=== PATIENT | female | born 1965 | race Caucasian/White ===

== ENCOUNTER 2020-11-29 07:02 | Day surgery (SDC) | payer OTHER ==
--- NOTE | 2020-11-28 11:52 | RAD REPORT ---
EXAM DESCRIPTION: RAD - Chest Pa And Lat (2 Views) - 11/28/2020 11:43 am CLINICAL HISTORY: preop COMPARISON: Chest Pa And Lat (2 Views) dated 03/21/2016 FINDINGS: Lines: None. Lungs: No evidence of edema or pneumonia. Pleural: No significant pleural effusions or pneumothorax. Cardiac: The heart size is within normal limits. Bones: No acute fractures. Other: IMPRESSION: No acute cardiopulmonary disease.
[2020-11-28 11:57] LABS: Absolute Lymphocytes (CBC) 1.8 K/uL (0.7-4.9); Basophils % 0.7 % (0-1.3); Hematocrit 39.1 % (36.0-45.0); Lymphocytes % 22.1 % (15.3-44.8); MPV 7.8 fL (7.6-11.3); RBC Red Blood Cell Count 4.46 M/uL (3.86-4.86)
[2020-11-28 12:08] LABS: BUN Blood Urea Nitrogen 12 mg/dL (7-18); Bicarbonate 31 mmol/L (21-32); Glucose Level 103 mg/dL (74-106); Potassium 3.9 mmol/L (3.5-5.1); Sodium Level 141 mmol/L (136-145)
--- NOTE | 2020-11-28 18:30 | EKG ---
Test Date: 2020-11-28 Test Time: 10:26:35 Undergraduate Internship: EREN MEASUREMENT RESULTS: Intervals: Rate: 79 MD: 138 QRSD: 74 QT: 360 QTc: 412 Duncan: P: 36 MD: 138 QRS: 18 T: 24 INTERPRETIVE STATEMENTS: Normal sinus rhythm Cannot rule out Anterior infarct, age undetermined Abnormal ECG No previous ECG available for comparison Electronically Signed On 11-28-20 18:29:36 CDT by Jaskaran Samuels
[2020-11-29] MEDS ORDERED: CEFAZOLIN/SWI 1gm 1 GM/10 ML SYR ONE (07:43)
[2020-11-29] MEDS ORDERED: NA CHLORIDE 0.9% 0 ML ONE (07:43)
[2020-11-29] MEDS ORDERED: Ringers Lactate 1,000 ML IV ONE (07:57)
[2020-11-29] MEDS ORDERED: ACETAMINOPHEN 500 MG TAB PO ONE (07:59)
[2020-11-29] MEDS ORDERED: CELECOXIB 100 MG CAPSULE PO ONE (07:59)
[2020-11-29] MEDS ORDERED: CELECOXIB 100 MG CAPSULE ONE (08:21)
[2020-11-29] MEDS ORDERED: ACETAMINOPHEN 500 MG TAB ONE (08:21)
[2020-11-29] MEDS: Ringers Lactate 1,000 ML IV ONE ×2 (09:42→09:52)
--- NOTE | 2020-11-29 09:51 | P.BOP ---
Preoperative diagnosis: ventral hernia, hx of abdominoplasty Postoperative diagnosis: ventral and umbilical hernia, intrabdominal adhesions Primary procedure: laparoscopic repair of ventral and umbilical hernia Estimated blood loss: <10cc Specimen: hernia sac with suture granulama Findings: umbilical and ventral supraumbilical hernia Anesthesia: General Complications: None Transferred to: Recovery Room Condition: Good
[2020-11-29] MEDS ORDERED: MIDAZOLAM HCL 2 MG/2 ML INJ ONE ×2 (10:29)
[2020-11-29] MEDS ORDERED: MEPERIDINE HCL 25 MG/ML SYR ONE (10:29)
[2020-11-29] MEDS ORDERED: LIDOCAINE 1% MPF 5 ML VIAL ONE (10:29)
[2020-11-29] MEDS ORDERED: GLYCOPYRROLATE 0.2 MG/ML SYR ONE ×2 (10:29)
[2020-11-29] MEDS ORDERED: propofoL 200 MG/20 ML VIAL IV ONE (10:29)
[2020-11-29] MEDS ORDERED: NEOSTIGMINE 1 MG/ML -5 ML ONE (10:29)
[2020-11-29] MEDS ORDERED: ONDANSETRON 4 MG/2 ML VIAL ONE (10:29)
[2020-11-29] MEDS ORDERED: dexAMETHasone 10 MG/ML VIAL ONE (10:29)
[2020-11-29] MEDS ORDERED: EPHEDRINE SULF 50 MG/ML VIAL ONE (10:29)
[2020-11-29] MEDS ORDERED: ROCURONIUM 50 MG/5 ML VIAL IV ONE (10:29)
[2020-11-29] MEDS ORDERED: FENTANYL CITR 100 MCG/2 ML ONE (10:29)
[2020-11-29 10:50] VITALS: TEMP 97.1; O2SAT 99
--- NOTE | 2020-11-29 12:02 | OP ---
Date of Procedure: 11/29/2020 Surgeon: Curtis Lance MD Preoperative Diagnoses: Abdominal pain, multiple ventral and umbilical hernias, history of abdominop lasty. Postoperatve Diagnoses: Abdominal pain, ventral and umbilical hernias, history of abdominoplasty and intraabdominal adhesions. Procedure Performed: Laparoscopic repair of ventral and umbilical hernia. Estimated Blood Loss: Less than 10 cc. Specimen: Hernia sac with suture granuloma. Findings: Umbilical and ventral supraumbilical hernia. Anesthesia: General plus local. Indications: This is the case of a 55-year-old patient comes to us with several problems. She has t wo bumps, belly button and just above and the ventral region. The patient has chronic pain in that r egion, feels some twitching, feels a lump and she wants the hernia to be repaired. The benefits, alt ernatives, and risks of repair of a ventral hernia were fully explained to the patient which include, but not limited to infection, bleeding, damage to adjacent structures, anesthesia complication, recu rrence, DE, and even . She also understands this may not relieve any symptoms. She might need more than one surgical intervention. She also understands the importance of no heavy lifting and als o the importance of losing some weight. She signed a consent. The patient was explained the pros and cons of mesh placement in case we have to use it. She did consent for mesh placement if needed. Description Of Procedure: The patient was brought to the operating room, placed in supine position. Anesthesia was done without complication. Abdominal area was prepped and draped in a sterile fashio n. Local anesthetic was applied. The patient has an incision over the periumbilical area from previ ous abdominoplasty. The ventral bump that we fill is just supraumbilical, so we were trying to see i t in order to minimize scars. We can combine this laparoscopic and open to avoid any other openings on the abdomen. So, when we opened the umbilical incision, Incision was carried down. We noticed th e umbilical hernia. We used that access to be able to put a camera inside. Umbilical fascia was subhash aned and Vicryl #1 was placed inside the fascia. Lilian trocar was carefully introduced. Pneumoperi toneum was obtained. We noticed as she described just above the supraumbilical region, the patient h as a ventral region. That is the bump that she feels. On that hernia itself, the patient has a sutu re from the previous abdominoplasty and looked like she also has a suture granuloma on the hernia. S o, we removed this stitch and we identified the hernia defect creating a flap in the supraumbilical r egion, so we can just go through without having to make another incision and put Vicryl #1 after the fascia edges were delineated and the hernia edges were delineated. We proceeded to close the defects with a cjknqb-cw-jjzkb fashion #1 Vicryl. The area was irrigated. At that moment, I proceeded then to inspect the area once again laparoscopically. This was done with laparoscopic assist to avoid an y injury to the underlying bowel. The patient also on encounter we noted some adhesions in the abdom en that were carefully removed with Leckrone scissors. When we laparoscoped, we make sure that those adh esions shows no enterotomies and there was no bleeding. At that moment, I proceeded then to carefull y inspect the area. I have to mention that I put a 5 mm trocar on the right lower side to assist wit h the laparoscopic procedure. That trocar was removed under direct visualization. No bleeding and t he Lilian trocar was removed and then we proceeded to close the umbilical hernia with a lfjquf-dz-qpk ht fashion #1 Vicryl. The patient tolerated the procedure well. Subcutaneous tissue was closed with 3-0 chromic and the skin in a subcuticular fashion with 3-0 chromic. The patient tolerated the proc edure well. The patient was sent to recovery in stable condition. YESSY/SAMEERA Voice ID: [id number] Report ID: [id number]
--- NOTE | 2020-11-29 12:09 | DS ---
Diagnoses: Ventral hernia, history abdominoplasty, umbilical hernia. Procedure: Laparoscopic repair of ventral and umbilical hernia. Disposition: Home. Activity: As tolerated. No heavy lifting. Plan: Follow up in my office in 1 week. Call for appointment at [phone]. Keep dressings intact un til next visit. Medications: See orders. YESSY/SAMEERA Voice ID: [id number] Report ID: [id number]
[2020-11-29 12:27] VITALS: BP 100/59
[2020-11-29] MEDS ORDERED: BUPIVACAINE 0.5% PF 10 ML VIAL ONE (12:33)
== END 2020-11-29 11:49 | disposition home or self-care (01) ==
LOC: OR 07:02
PROVIDERS: ATTEND Surgery
PROC: 0WQF4ZZ Repair Abdominal Wall, Percutaneous Endoscopic Approach (ICD-10-PCS; principal; 2020-11-29 08:00)
DX: K43.9 Ventral hernia without obstruction or gangrene (principal); Z20.822 Contact with and (suspected) exposure to COVID-19
CPT/HCPCS: 93005; 85025; 80048; 36415; 88302; 71046; 49652; U0003; J2704; J2250 ×2; J3010; J1100; J2175; J2710; J0690; J7120 ×2; J2405; J7030

== ENCOUNTER 2021-01-01 12:04 | Day surgery (SDC) | payer OTHER ==
[2020-12-28 11:21] LABS: Absolute Lymphocytes (CBC) 1.5 K/uL (0.7-4.9); Basophils % 0.5 % (0-1.3); Hematocrit 39.8 % (36.0-45.0); Lymphocytes % 20.8 % (15.3-44.8); MPV 8.2 fL (7.6-11.3); RBC Red Blood Cell Count 4.56 M/uL (3.86-4.86)
[2020-12-28 11:24] LABS: Protime INR 1.02
[2020-12-28 11:27] LABS: Potassium 4.3 mmol/L (3.5-5.1)
[~2021-01-01 12:04] MED LIST: HEPA 1000U/500MLS 2,000 UNIT/1,000 ML BAG IV ONE; LIDOCAINE 1% 20 ML MDV ONE
[2021-01-01] MEDS ORDERED: NA CHLORIDE 0.9% 500 ML ONE (13:07)
[2021-01-01 15:37] VITALS: TEMP 99.5
[2021-01-01] MEDS ORDERED: FENTANYL CITR 100 MCG/2 ML ONE (16:38)
[2021-01-01] MEDS ORDERED: MIDAZOLAM HCL 2 MG/2 ML INJ ONE (16:38)
[2021-01-01] MEDS ORDERED: VERAPAMIL HCL 10 MG/4 ML VIAL IV ONE (16:38)
[2021-01-01] MEDS ORDERED: HEPARIN 5000 UNIT/ML 1 ML VIAL ONE (16:39)
[2021-01-01] MEDS ORDERED: ATROPINE SULF 1 MG/10 ML SYR IV ONE (16:39)
[2021-01-01 17:37] VITALS: O2SAT 99
[2021-01-01 19:16] VITALS: BP 131/72
--- NOTE | 2021-01-01 20:15 | OP ---
Date of Procedure: 01/01/2021 Surgeon: DARCI PAGE Procedures Performed: 1.Selective coronary angiogram. 2.Right heart catheterization. 3.Left heart catheterization. Indication: Unexplained severe shortness of breath with exertion. Access: 1.Right radial artery 6-Malawian closed with TR band. 2.Right IJ 7-Malawian closed with manual pressure. Complications: None. Anesthesia: Total sedation time was 15 minutes. Description Of Procedure: After risks, benefits, and alternatives were explained, the patient agreed to proceed and signed the informed consent. The patient was brought into the cardiac catheterizatio n laboratory, prepped and draped in sterile fashion. Access to right radial artery using pediatric m icropuncture kit, placed a 6-Malawian Slender sheath and access side IJ using a micropuncture kit and u ltrasound guidance and placed a 7-Malawian pinnacle sheath. I took a balloon tip 7-Malawian swan cathete r through the right IJ into the right atrium recorded waveform pressure, then took RV recorded wavefo rm pressure, and then took the PA recorded waveform pressure and thermodilution cardiac output was ob tained and then to the wedge recorded waveform pressure. Then removed the swan. Subsequently, we to ok a 5-Malawian [place] 4.0 catheter into the aortic root over a J-wire through the right radial access a nd engaged left main, right coronary artery, and then the catheter was advanced over the wire into th e LV recorded LVEDP. Upon pullback, there was no gradient and then removed the catheter and sheath, placed TR band with good hemostasis. Findings: 1.Left main; large, normal. 2.LAD; normal. Diagonal branch is larger than the LAD itself, but it is normal as well. 3.Left circumflex is normal nondominant. 4.RCA; large dominant and normal. 5.LVEDP of 15 to 16 mmHg. 6.The right heart catheterization numbers RA pressure was 4. RV pressure was 21/8, mean of 9. PA p ressure is 29/3, mean of 17, pulmonary wedge pressure was 11, and cardiac output was 4.9 L/minute. Conclusions: 1.Normal coronary arteries. 2.Normal filling pressures. SR/MODL Voice ID: [id number] Report ID: [id number]
== END 2021-01-01 19:00 | disposition home or self-care (01) ==
LOC: CCL 12:04
PROVIDERS: ATTEND Internal Medicine
DX: R07.9 Chest pain, unspecified (principal); R06.02 Shortness of breath; I10 Essential (primary) hypertension; Z79.82 Long term (current) use of aspirin; Z20.822 Contact with and (suspected) exposure to COVID-19
CPT/HCPCS: 85025; 80048; 36415; 85610; 85730; 93460; U0003; C1893; J1644 ×2; J2250; J3010; J7040

== ENCOUNTER 2021-03-14 23:14 | Emergency (ER) | payer OTHER ==
--- OUTSIDE RECORDS SUMMARY | 2021-03-14 23:19 | XMS REPORT | Continuity of Care Document ---
:1965 Author Organization [facility] t Address [address] [place] [address] Care Team Providers Name Role Phone Freddie COTTO Primary Care Physician Unavailable Freddie Ortega Attending Clinician Freddie COTTO Attending Clinician Unavailable Syd Yip APN Attending Clinician Syd YIP Attending Clinician Unavailable Mami JONES Attending Clinician Payers Payer Name Policy Type Policy Number Effective Date Expiration Date Lili morocho AETNA MANAGED [id number] 2010 MD Rabago CAREAETNA 00:00:00 [id number] 13/2010-[address] [address]TD Problems Condition Condition Condition Status Onset Resolution Last Treating Co mments Source Name Details Category Date Date Treatment Clinician Date Hip pain Hip pain Disease Active Overview: MD Soraida pierre of this n note might be different from the original. chronic Hypothyroi Hypothyroi Disease Active [place] guardado Major Major Disease Active depressive depressive An derso disorder disorder n Allergies, Adverse Reactions, Alerts Allergy Allergy Status Severity Reaction(s) Onset Inactive Treating Comm ents Source Name Type Date Date Clinician No Known DA Active U 2017-03 [facility] [place] Family History Family Member Diagnosis Comments Start Date Stop Date Source Paternal grandmother Liver cancer MD Rabago Maternal cousin Liver cancer MD Sharan haile Maternal uncle -Brain cancer MD Sharan haile Maternal uncle -Unknown cancer MD Janice keys Natural mother -Breast cancer And chandrakant Social History Social Habit Start Date Stop Date Quantity Comments Source History [facility] MD Rabago Alcohol Frequency History [facility] MD Rabago Alcohol Std Drinks History [facility] MD Rabago Alcohol Binge Alcohol intake 2020-08-31 2020-08-31 Current drinker of MD Rabago 00:00:00 00:00:00 alcohol (finding) Tobacco use and 2016-03-14 2016-03-14 Smokeless tobacco MD Rabago exposure 00:00:00 00:00:00 non-user History [facility] 2016-03-14 2016-03-14 socially MD Rabago Alcohol Comment 00:00:00 00:00:00 Sex [birth year] At [birth year] F MD Sanchez on 00:00:00 00:00:00 Smoking Status Start Date Stop Date Source Never smoked tobacco MD Rabago Medications Ordered Filled Start Stop Current Ordering Indication Dosage Frequency Signature Comments Components Source Medication Medication Date Date Medication? Clinician (SIG) Name Name famotidine Yes 20mg Take 20 mg M D (PEPCID) 20 6-10 by mouth Sharan rso mg tablet 09:09: daily as n 17 needed. gabapentin Yes 300mg Take 300 MD (NEURONTIN) 6-10 mg by Anderso 300 mg 09:09: mouth n capsule 17 twice daily. traZODone Yes 100mg Take 100 MD (DESYREL) 6-10 mg by Anderso 100 mg 09:09: mouth at n tablet 17 bedtime. buPROPion Yes 300mg Take 300 MD (WELLBUTRIN 6-10 mg by Anderso XL) 300 mg 09:09: mouth n 24 hr 17 daily. tablet thyroid Yes 120mg Take 120 MD (ARMOUR 6-10 mg by Anderso THYROID) 09:09: mouth n 120 mg tab 17 daily. tablet metoprolol Yes 50mg Take 50 mg M D succinate 6-10 by mouth Daniel o (TOPROL XL) 09:09: daily. n 50 mg 24 hr 17 tablet lisdexamfet Yes 60mg Take 60 mg MD amine 6-10 by mouth Anderso (VYVANSE) 09:09: every n 60 mg 17 morning. capsule UNABLE TO Yes Med Name: MD FIND 6-10 hormone Anderso 08:54: pellets n 57 every three months due for replacemen t today losartan Yes 25mg Take 25 mg MD (COZAAR) 25 6-10 by mouth Sharan rso mg tablet 08:54: daily. n 57 traMADol Yes 50mg Take 50 mg MD (ULTRAM) 50 6-10 by mouth Sharan rso mg tablet 08:54: every 8 n 57 (eight) hours as needed. ibuprofen Yes 800mg Take 800 MD (ADVIL,MOTR 6-10 mg by Anderso IN) 800 mg 08:54: mouth n tablet 57 every 8 (eight) hours as needed. thyroid Yes 130mg Take 130 MD (NATURE-THR 1-08 mg by Anderso OID) 130 mg 09:27: mouth n tab tablet 24 daily. DULoxetine 2017-03 Yes TAKE 1 MD (CYMBALTA) 0-01 CAPSULE Daniel o 60 mg 00:00: BY MOUTH n capsule 00 DAILY. progesteron Yes TAKE 1 MD e 8-15 CAPSULE BY Anderso (PROMETRIUM 00:00: MOUTH AT n ) 200 MG 00 BEDTIME capsule Vital Signs Vital Name Observation Time Observation Value Comments Source Systolic blood pressure 2020-08-31 14:03:00 126 mm[Hg] MD Rabago Diastolic blood pressure 2020-08-31 14:03:00 69 mm[Hg] MD Rabago Heart rate 2020-08-31 14:03:00 74 /min MD [facility] Respiratory rate 2020-08-31 14:03:00 15 /min MD Dain wilde Body height 2020-08-31 14:03:00 156 cm MD [facility] Body weight 2020-08-31 14:03:00 79.8 kg MD [facility] BMI 2020-08-31 14:03:00 32.79 kg/m2 MD Wall son Procedures Procedure Date / Time Performed Performing Clinician [facility] e MAMMO DIGITAL SCREENING 2020-08-31 13:42:06 Noemy Yip MD nderson BILATERAL W OUMAR Plan of Care Planned Activity Planned Date Details Comments Source Future Scheduled Test 1971-11-05 00:00:00 COVID-19 Vaccination MD Rabago (1) [code = COVID-19 Vaccination (1)] Encounters Start End Encounter Admission Attending Care Care Encounter Source Date/Time Date/Time Type Type Clinicians Facility Department ID 2020-08-31 2020-08-31 Outpatient ANALI YADIEL [facility] MDA [id number] 08:50:24 08:50:24 KATE guardado 2020-08-31 2020-08-31 Outpatient ANALI YIP [facility] BURRIS [id number] 08:11:45 08:11:45 NOEMY guardado Results Test Description Test Time Test Comments Results Result [facility] e Comments UTERUS,OTHER THAN 2018-04-14 PROLAPSE/JANET 07:43:00 --------RUN DATE: 04/14/18 [facility] PAGE 1 RUN TIME: 909 Specimen Inquiry RUN USER: INTERFACE --------PATIENT: AMRITA WALKER LOC: [facility] U #: [id number] AGE/SX: 52/F ROOM: [facility] RE04/10/18REG DR: Marcin Lord MD : 67 BED: A DIS: 04/11/18 STATUS: DIS Cheryl TLOC: -------- SPEC #: [id number] RECD: 04/10/18 STATUS: SOUT REQ #: [id number] CRISTIAN: 04/10/18- SUBM DR: Marcin Lord MD ENTERED: 04/10/18 SP TYPE: UTERUSOTH OTHR DR: ORDERED: LEVEL V SURGICA CODES: E05221 - UTERUS, NOS PROCEDURES: LEVEL V SURGICA (Incomplete) TISSUES: UTERUS, NOS - UTERUS, CERVIX, BILATERAL FALLOPIAN TUBES AND OVARIES CLINICAL HISTORY 52 year old, dysfunctional uterine bleeding (kr) FINAL DIAGNOSIS Uterus, hysterectomy, cervix - Nabothian cysts endometrium - proliferative pattern myometrium - extensive adenomyosis - multiple leiomyomas with degenerative change serosa - no pathologic diagnosis Ovary and fallopian tube, right, resection - cortical fibrous nodule - status post tubal ligation Ovary and fallopian tube, left, resection - status post tubal ligation - benign paratubal cyst Tissue code 1 CPT code(s): 68216 cds/kr dt: 04/14/18 GROSS DESCRIPTION ANATOMIC SOURCE OF TISSUE (per Requisition): Uterus, cervix, bilateral fallopian tubes and ovaries The specimen is received in formalin, labeled with the patient's name and designated "uterus, cervix, bilateral tubes and ovaries". It consists of a 9 x 7 x 6 cm hysterectomy specimen with bilateral adnexa attached. The uterus weighs 145 gm. The serosa is domingo, smooth, and glistening and contains subserosal firm nodules measuring up to 3.4 cm. The cervical external os measures 0.6 cm. The portio vaginalis measures 3.0 cm. [employer]st sections are submitted labeled A. CONTINUED ON NEXT PAGE --------RUN DATE: 04/14/18 [facility] PAGE 2 RUN TIME: 909 Specimen Inquiry RUN USER: INTERFACE --------SPEC #: [id number] PATIENT: AMRITA WALKER #[id number] (Continued) GROSS DESCRIPTION (Continued) The endometrium measures 0.1 cm and contains ill-defined, submucosal firm lesions measuring up to 0.9 cm. The myometrium measures up to 2.8 cm thick and contains multiple additional domingo-white, firm nodules measuring up to 1.8 cm. No degenerative change is noted in the leiomyomas. Acquisitions Analyst sections are submitted labeled B and C. The right adnexa consists of a 2.2 x 1.5 x 0.9 cm ovary with an attached 5 x 0.5 x 0.5 cm segment of previously ligated fallopian tube with fimbria. The surface of the ovary contains pedunculated 0.2 cm off-white, firm nodule. The entire fimbria and one cross-section of tube and ovary with the firm nodule are submitted labeled D. The left adnexa consists of a 2.2 x 1.0 x 0.9 cm ovary with an attached 2 x 0.4 x 0.5 cm segment of previously ligated fallopian tube with fimbria and several semi-translucent paratubal cysts measuring up to 0.2 cm. The entire fimbria and one cross-section of tube with the cyst and one section of ovary are submitted and labeled E. seng/jerome 04/10/18 @ 1150 MICROSCOPIC DESCRIPTION There is no evidence of atypia or malignancy. billy/jerome dt: 04/14/18 Signed Juan Jose Villa 04/14/18 0743 -------- END OF REPORT HGB HCT 2018-04-11 04:14:00 Test Item Value Reference Range Interpretation Comme nts HEMOGLOBIN (test code = HGB) 11.8 g/dL 10.7-13.9 N HEMATOCRIT (test code = HCT) 35.9 % 32.1-42.1 N UR HCG [id number] 06:48:00 Test Item Value Reference Range Interpretation Comments UR HCG QUAL (test NEGATIVE 1. Very di lute urine code = HCGQLU) specimens, as indicated by a lowspecific g ravity, may not contain rep resentative levels ofhCG. 2 . False negative result s may occur when the levels of hCGare below the sensi tivity level of the test. If is still suspec francois, a first morningurine sp ecimen should be colle cted 48 hours later and tested.
--- OUTSIDE RECORDS SUMMARY | 2021-03-14 23:19 | XMS REPORT | Clinical Summary ---
:1965 Author Organization [facility] MD [facility] Address [address] [place] [address] Care Team Providers Name Role Phone Vandana Sharp MD Primary Care Provider Unavailable Juliette Braxton MD Unavailable Tiffanie Jackson NP Unavailable Freddie Willis Primary Care Provider Allergies No known active allergies Medications Medication Sig Dispensed Refills Start Date End Date Status thyroid (NATURE-THROID) Take 130 mg by 0 Active 130 mg tab tablet mouth daily. UNABLE TO FIND Med Name: hormone 0 Active pellets every three months due for replacement today DULoxetine (CYMBALTA) TAKE 1 CAPSULE 2 12/22/2017 Active 60 mg capsule BY MOUTH DAILY. progesterone TAKE 1 CAPSULE BY 2 11/05/2017 Active (PROMETRIUM) 200 MG MOUTH AT BEDTIME capsule losartan (COZAAR) 25 mg Take 25 mg by 0 Active tablet mouth daily. traMADol (ULTRAM) 50 mg Take 50 mg by 0 Active tablet mouth every 8 (eight) hours as needed. ibuprofen Take 800 mg by 0 Activ e (ADVIL,MOTRIN) 800 mg mouth every 8 tablet (eight) hours as needed. famotidine (PEPCID) 20 Take 20 mg by 0 Active mg tablet mouth daily as needed. gabapentin (NEURONTIN) Take 300 mg by 0 Active 300 mg capsule mouth twice daily. traZODone (DESYREL) 100 Take 100 mg by 0 Active mg tablet mouth at bedtime. buPROPion (WELLBUTRIN Take 300 mg by 0 Active XL) 300 mg 24 hr tablet mouth daily. thyroid (ARMOUR Take 120 mg by 0 Active THYROID) 120 mg tab mouth daily. tablet metoprolol succinate Take 50 mg by 0 Active (TOPROL XL) 50 mg 24 hr mouth daily. tablet lisdexamfetamine Take 60 mg by 0 Active (VYVANSE) 60 mg capsule mouth every morning. 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 08/31/2020 Travel 07/02/2020 Orders Only Infectious Diseases Mami SARS-CoV -2 MD Bing vaccination after 03/14/2020 Surgical History Surgery Date Site/Laterality Comments GASTRIC BYPASS 03/24/2010 - 03/23/2011 loss of 60 lbs CHOLECYSTECTOMY 02/21/2011 - 03/23/2011 APPENDECTOMY 03/24/2005 - 03/23/2006 BLADDER SUSPENSION 03/24/2001 - 03/23/2002 COLONOSCOPY 03/24/1999 - 03/23/2000 TUBAL LIGATION 03/24/1993 - 03/23/1994 Bilateral HEMORRHOID SURGERY 03/24/1991 - 03/23/1992 EYE SURGERY 03/24/1971 - 03/23/1972 Right following trauma BLADDER SUSPENSION 09/22/2015 - 10/22/2015 with rec snow ring ABDOMINOPLASTY 10/23/2015 - 11/22/2015 bilateral t high lift, bilateral arm li ft, hernia repair x 2 LIPOSUCTION 03/24/2016 - 04/23/2016 SHOULDER SURGERY Right rotator cuff re pair HYSTERECTOMY 04/13/2018 Total hysterecto my in 03/2018 due to fibroids and heavy bleeding. Medical History Medical History Date Comments Major depressive disorder Hypothyroidism Hip pain chronic Family History Medical History Relation Name Comments Liver cancer Maternal Cousin -Brain cancer Maternal Uncle 1 -Unknown cancer Maternal Uncle 2 -Breast cancer Mother Liver cancer Paternal Grandmother Relation Name Status Comments Maternal Cousin Maternal Uncle 1 Maternal Uncle 2 Mother Alive Paternal Grandmother Social History Tobacco Use Types Packs/Day Years Used Date Never Smoker Smokeless Tobacco: Never Used Alcohol Use Standard Drinks/Week Comments Yes 0 (1 standard drink = 0.6 oz pure alcoho l) socially Alcohol Habits Answer Date Recorded How often do you have a drink containing alcohol? Not asked How many drinks containing alcohol do you have on a typical Not asked day when you are drinking? How often do you have six or more drinks on one occasion? No t asked Comment: socially 03/14/2016 Sex Assigned at Date Recorded Female 08/30/2020 8:24 PM CDT Job Start Date Occupation Industry Not on file Not on file Not on file Obstetrics History Para Term AB IAB SAB Ectopic Multiple Living Live Births 3 3 3 3 Date Outcome GA Total Labor/2nd/3rd Weight Sex Delivery Anes PTL Angelina A 1 A5 Name Clin Labor Para Para Para Comments Menarche: at age 15 Parity: at age 22 OCP: approx 5 years HRT: since age 51 to current. Currently on oral Progesterone daily and hormone pellets every 3 months Patient denies any history of abnormal p ap smears. Patient denies any history of breast danelle lennie or breast biopsy. Last Filed Vital Signs Vital Sign Reading Time Taken Comments Blood Pressure 126/69 08/31/2020 9:03 AM CDT Pulse 74 08/31/2020 9:03 AM CDT Temperature - - Respiratory Rate 15 08/31/2020 9:03 AM CDT Oxygen Saturation - - Inhaled Oxygen Concentration - - Weight 79.8 kg (175 lb 14.8 oz) 08/31/2020 9:03 AM CDT Height 156 cm (5' 1.42") 08/31/2020 9:03 AM CDT Body Mass Index 32.79 08/31/2020 9:03 AM CDT Plan of Treatment Health Maintenance Due Date Last Done Comments COVID-19 Vaccination (1) 11/05/1971 Procedures Procedure Name Priority Date/Time Associated Diagnosis Comme nts MAMMO DIGITAL Routine 08/31/2020 8:42 AM Screening Results for this SCREENING BILATERAL CDT procedur e are in [facility] the results section. after 03/14/2020 Results Mammography Digital Screening Bilateral with Donn (08/31/2020 8:42 AM CDT) Specimen Impressions [facility] - 08/31/2020 8:55 AM CDT No evidence of malignancy. Follow-up mammogram in 1 year is recomme nded. BI-RADS Category 1: Negative Narrative [facility] - 08/31/2020 8:55 AM CDT CLINICAL INDICATION: Patient is a 54 year old female and is s een for screening. MAMMO DIGITAL SCREENING BILATERAL [facility] Digital Mammogram evaluated with Compute r Aided Detection (CAD). COMPARISON: The present examination has been compare d to prior imaging studies performed at [facility] o n 03/10/2015, 10/22/2016, 12/31/2017 and 03/31/2019. FINDINGS: There are scattered areas of fibroglandu lar density. No dominant mass, distortion, or suspici ous calcifications are identified. Tomosynthesis performed in CC and MLO pr ojections. Procedure Note Mena Alex MD - 08/31/2020 CLINICAL INDICATION: Patient is a 54 year old female and is s een for screening. MAMMO DIGITAL SCREENING BILATERAL [facility] Digital Mammogram evaluated with Compute r Aided Detection (CAD). COMPARISON: The present examination has been compare d to prior imaging studies performed at [facility] o n 03/10/2015, 10/22/2016, 12/31/2017 and 03/31/2019. FINDINGS: There are scattered areas of fibroglandu lar density. No dominant mass, distortion, or suspici ous calcifications are identified. Tomosynthesis performed in CC and MLO pr ojections. IMPRESSION: No evidence of malignancy. Follow-up mammogram in 1 year is recomme nded. BI-RADS Category 1: Negative Performing Organization Address City/State/ZIP Code Phon e Number FELICITAS after 03/14/2020 Insurance Payer Benefit Plan / Subscriber ID Effective Dates Phone Addre ss Type Group AETNA MANAGED AETNA O [id number] 2010-Prese [place] X [id number] [facility] [place] [address] Care Teams Warehouse Coordinator Relationship Specialty Start Date End Date Vandana Sharp MD PCP - General 05/24/15 08/27/20 Juliette Braxton, PCP - External Follow Up 03/10/15 MD Giles Sia Willis FNP PCP - General Cancer Prevention 08/28/[address] [place] [id number] Arianna Moreno V, HEALTH AND SAFETY TECH Nurse Practitioner 05/31/[address] [place] [id number]
[2021-03-15 00:04] LABS: Absolute Lymphocytes (CBC) 1.7 K/uL (0.7-4.9); Basophils % 0.7 % (0-1.3); Hematocrit 40.1 % (36.0-45.0); Lymphocytes % 19.3 % (15.3-44.8); MPV 7.9 fL (7.6-11.3); RBC Red Blood Cell Count 4.55 M/uL (3.86-4.86)
[2021-03-15 00:08] LABS: Protime INR 1.03
[2021-03-15 00:21] LABS: Potassium 3.6 mmol/L (3.5-5.1)
--- NOTE | 2021-03-15 03:12 | EDPHYS ---
Physician Documentation [facility] Name: Chio Casey Age: 55 yrs Sex: Female : 1965 Arrival Date: 03/14/2021 Time: 23:18 Bed 17 Private MD: ED Physician Shilo Garg HPI: 03/15 00:17 This 55 yrs old Female presents to ER via Ambulatory with complaints of Leg rn Swelling, Leg Pain. 00:17 The patient presents with pain, swelling. The complaints affect the right calf. Onset: rn The symptoms/episode began/occurred yesterday. Modifying factors: The symptoms are alleviated by nothing. the symptoms are aggravated by movement. Associated signs and symptoms: Pertinent positives: swelling, warmth, Pertinent negatives fever, rash, weakness. Treatment prior to arrival includes: no previous treatment. Severity of symptoms: At their worst the symptoms were moderate, in the emergency department the symptoms are unchanged. The patient has not experienced similar symptoms in the past. The patient has not recently seen a physician. Patient reports right leg swelling and calf pain. Started yesterday. No fever. Reports feels a little warm. Denies any injury or fall. Reports increased swelling as of yesterday. No history of DVT or PE. Has not been sick recently. No changes in medication. States only affecting her right lower extremity.. 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 - Social history:: Smoking status: Patient denies any tobacco usage or history of. Patient uses alcohol, occasionally. - Family history:: not pertinent. - Hospitalizations: : No recent hospitalization is reported. ROS: 03/15 00:17 Constitutional: Negative for fever, chills, and weight loss, Eyes: Negative for injury, rn pain, redness, and discharge, Neck: Negative for injury, pain, and swelling, Cardiovascular: Negative for chest pain, palpitations, and edema, Respiratory: Negative for shortness of breath, cough, wheezing, and pleuritic chest pain, Abdomen/GI: Negative for abdominal pain, nausea, vomiting, diarrhea, and constipation, Back: Negative for injury and pain, : Negative for injury, bleeding, discharge, and swelling, MS/Extremity: Positive for right leg swelling and pain Skin: Negative for injury, rash, and discoloration, Neuro: Negative for headache, weakness, numbness, tingling, and seizure. Exam: 00:17 Constitutional: This is a well developed, well nourished patient who is awake, alert, rn and in no acute distress. Head/Face: Normocephalic, atraumatic. Eyes: Periorbital areas with no swelling, redness, or edema. Cardiovascular: Regular rate and rhythm. No pulse deficits. Respiratory: No increased work of breathing, no retractions or nasal flaring. Skin: Warm, dry, no cyanosis, no gangrene, no petechiae MS/ Extremity: Pulses equal, no cyanosis. Neurovascular intact. Right lower extremity with increased circumference compared to the left lower extremity. Strong pulses and equal bilaterally. Mild blanching of the medial calf but no rash. No knee pain or swelling. No discoloration or infection noted of the foot. Neuro: Awake and alert, GCS 15 Vital Signs: 03/14 23:26 BP 147 / 104; Pulse 88; Resp 18; Temp 98.8(O); Pulse Ox 98% on R/A; Weight 79.38 kg; ld1 Height 5 ft. 1 in. (154.94 cm); Pain 8/10; 03/15 01:25 BP 135 / 83; Pulse 84; Resp 17; Pulse Ox 100% on R/A; kd3 03:10 BP 140 / 90; Pulse 86; Resp 16; Pulse Ox 100% on R/A; kd3 03/14 23:26 Body Mass Index 33.07 (79.38 kg, 154.94 cm) ld1 MDM: 03/14 23:31 Patient medically screened. rn 03/15 03:09 Differential diagnosis: DVT, early soft tissue infection, vascular problem, dissection. rn Data reviewed: vital signs, nurses notes, lab test result(s), radiologic studies, CT scan, ultrasound, and as a result, I will discharge patient. Counseling: I had a detailed discussion with the patient and/or guardian regarding: the historical points, exam findings, and any diagnostic results supporting the discharge/admit diagnosis, lab results, radiology results, the need for outpatient follow up, to return to the emergency department if symptoms worsen or persist or if there are any questions or concerns that arise at home. Special discussion: I discussed with the patient/guardian in detail that at this point there is no indication for admission to the hospital. It is understood, however, that if the symptoms persist or worsen the patient needs to return immediately for re-evaluation. ED course: Ultrasound negative for DVT. Upon reevaluation patient reported some back pain, CT aorta was performed to make sure that there was no proximal vascular problem going on, there were no acute findings. Will DC home with antibiotics given that there was no injury and ultrasound negative for DVT with unilateral tenderness and swelling. There is no discoloration of the leg, and pulses were strong and equal bilaterally.. 03/14 23:37 Order name: CBC with Diff rn 03/14 23:37 Order name: Basic Metabolic Panel rn 03/14 23:37 Order name: Protime (+inr); Complete Time: 00:16 rn 03/14 23:37 Order name: Ptt, Activated; Complete Time: 00:16 rn 03/14 23:37 Order name: BNP; Complete Time: 00:25 rn 03/14 23:37 Order name: CBC with Automated Diff; Complete Time: 00:16 EDMS 03/14 23:37 Order name: Extremity Venous Uni Ltd US rn 03/14 23:37 Order name: IV Start; Complete Time: 23:57 rn 03/14 23:37 Order name: Basic Metabolic Panel; Complete Time: 00:25 EDMS 03/15 00:41 Order name: CT Aorta for Dissection rn Administered Medications: 03:16 Drug: Bactrim (trimethoprim-sulfamethoxazole) (160 mg-800 mg (DS) 1 tablet Route: PO; kd3 03:18 Follow up: Response: No adverse reaction kd3 Disposition Summary: 03/15/21 03:12 Discharge Ordered Location: Home rn Problem: new rn Symptoms: have improved rn Condition: Stable rn Diagnosis - Pain in right lower leg rn - Edema, unspecified rn Followup: rn - With: Private Physician - When: As needed - Reason: Recheck today's complaints, Re-evaluation by your physician Discharge Instructions: - Discharge Summary Sheet rn - Edema rn - Musculoskeletal Pain rn Forms: - Medication Reconciliation Form rn - Thank You Letter rn - 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
--- NOTE | 2021-03-15 03:12 | ER ---
Nurse's Notes [facility] Name: Chio Casey Age: 55 yrs Sex: Female : 1965 Arrival Date: 03/14/2021 Time: 23:18 Bed 17 Private MD: Diagnosis: Pain in right lower leg;Edema, unspecified Presentation: 03/14 23:26 Chief complaint: Patient states: Right lower leg swelling X 1 day. Today it doubled in ld1 size. Pt reports sharp stabbing pain in right lower leg, warm to touch. Coronavirus screen: At this time, the client does not indicate any symptoms associated with coronavirus-19. Ebola Screen: No symptoms or risks identified at this time. Initial Sepsis Screen: Does the patient meet any 2 criteria? No. Patient's initial sepsis screen is negative. Does the patient have a suspected source of infection? No. Patient's initial sepsis screen is negative. Risk Assessment: Do you want to hurt yourself or someone else? Patient reports no desire to harm self or others. Onset of symptoms was March 14, 2021. 23:26 Method Of Arrival: Ambulatory ld1 23:26 Acuity: DIGNA 3 ld1 Triage Assessment: 23:27 General: Appears in no apparent distress. comfortable, Behavior is calm, cooperative, ld1 appropriate for age. Pain: Complains of pain in right calf, right Achilles and right reyes Pain does not radiate. Pain currently is 8 out of 10 on a pain scale. Respiratory: Airway is patent Respiratory effort is even, unlabored, Respiratory pattern is regular, symmetrical. 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 - Social history:: Smoking status: Patient denies any tobacco usage or history of. Patient uses alcohol, occasionally. - Family history:: not pertinent. - Hospitalizations: : No recent hospitalization is reported. Screenin/23 03:10 Abuse screen: Denies threats or abuse. Denies injuries from another. Nutritional kd3 screening: No deficits noted. Tuberculosis screening: No symptoms or risk factors identified. Fall Risk IV access (20 points). Assessment: 01:26 General: Appears in no apparent distress. Behavior is calm, cooperative, appropriate kd3 for age. Pain: Denies pain. Neuro: No deficits noted. Level of Consciousness is awake, alert, obeys commands, Oriented to person, place, time, situation. Cardiovascular: No deficits noted. Patient's skin is warm and dry. Respiratory: No deficits noted. Airway is patent Respiratory effort is even, unlabored. GI: No deficits noted. : No deficits noted. EENT: No deficits noted. Derm: No deficits noted. Musculoskeletal: No deficits noted. Vital Signs: 03/14 23:26 BP 147 / 104; Pulse 88; Resp 18; Temp 98.8(O); Pulse Ox 98% on R/A; Weight 79.38 kg; ld1 Height 5 ft. 1 in. (154.94 cm); Pain 8/10; 03/15 01:25 BP 135 / 83; Pulse 84; Resp 17; Pulse Ox 100% on R/A; kd3 03:10 BP 140 / 90; Pulse 86; Resp 16; Pulse Ox 100% on R/A; kd3 03/14 23:26 Body Mass Index 33.07 (79.38 kg, 154.94 cm) ld1 ED Course: 03/14 23:18 Patient arrived in ED. ja2 23:27 Triage completed. ld1 23:27 Arm band placed on right wrist. ld1 23:31 Shilo Garg MD is Attending Physician. rn 23:38 Letty Verdugo RN is Primary Nurse. kd3 23:57 CBC with Automated Diff Sent. kd3 23:57 Basic Metabolic Panel Sent. kd3 23:57 BNP Sent. kd3 23:57 Protime (+inr) Sent. kd3 23:57 Ptt, Activated Sent. kd3 23:57 Basic Metabolic Panel Sent. kd3 23:57 CBC with Diff Sent. kd3 03/15 00:11 Extremity Venous Uni Ltd US In Process Unspecified. EDMS 02:19 CT Aorta for Dissection In Process Unspecified. EDMS 03:10 Patient has correct armband on for positive identification. Bed in low position. Call kd3 light in reach. Side rails up X 1. Pulse ox on. NIBP on. 03:18 No provider procedures requiring assistance completed. IV discontinued. kd3 Administered Medications: 03:16 Drug: Bactrim (trimethoprim-sulfamethoxazole) (160 mg-800 mg (DS) 1 tablet Route: PO; kd3 03:18 Follow up: Response: No adverse reaction kd3 Outcome: 03:12 Discharge ordered by . rn 03:18 Discharged to home ambulatory. kd3 03:18 Condition: stable 03:18 Discharge instructions given to patient, Instructed on discharge instructions, follow up and referral plans. medication usage, Demonstrated understanding of instructions, follow-up care, medications. 03:28 Patient left the ED. kd3 Signatures: Dispatcher [employer] EDMS Shilo Garg MD MD rn Dibbern, Lauren, RN RN [email or web address] Adelaida Roe Kyli, RN RN kd3
[2021-03-15] MEDS ORDERED: SMZ./TMP. 800/160 MG TABLET ONE (03:15)
[2021-03-15 03:41] VITALS: TEMP 98.8
[2021-03-15 03:44] VITALS: O2SAT 100
[2021-03-15 03:45] VITALS: BP 140/90
--- NOTE | 2021-03-15 07:22 | RAD REPORT ---
EXAM DESCRIPTION: US - Extremity Venous Uni Ltd - 03/15/2021 12:11 am COMPARISON: None. TECHNIQUE: Real-time sonographic evaluation of the right lower extremity deep venous system was perf ormed. FINDINGS: Normal compressibility, flow augmentation, phasic flow and spontaneous flow is identified in the right lower extremity deep venous system. No intraluminal filling defects seen. IMPRESSION: No DVT in the right lower extremity.
--- NOTE | 2021-03-15 12:31 | RAD REPORT ---
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 TECHNIQUE: Multiple transaxial tomograms from the thoracic and abdominal aorta from the lung apex to the ischial tuberosities performed before and after the administration of large bolus of IV contrast for complete opacification of the thoracic, abdominal aorta and iliac arteries utilizing 3 mm slice thickness at 3 mm interval reconstruction. 2-D and 3-D multiplanar reformats, volume rendering technique and maximum intensity projection images were generated and reviewed. This exam was performed according to our departmental dose-optimization protocol, which includes auto mated exposure control, adjustment of the mA and/or kV according to patient size and/or use of iterat jean pierre reconstruction technique. FINDINGS: Thoracic aorta: The thoracic aorta demonstrate to be within normal limits. There is no evidence for significant thora cic aneurysm and/or aortic dissection allowing for motion artifact within the aortic root. The ascend ing aorta measured 2.7 cm on image 35, the aortic arch measures 2 cm on image 27, the descending thor acic aorta measured 1.8 cm on image 59. There is normal branching pattern of the aortic arch. Incidentally is noted presence of origin of the left vertebral artery from the aortic arch. Abdominal aorta: The abdominal aorta demonstrate to be within normal limits. There is no evidence for aneurysm and/or dissection. No significant atheromatous plaque formation is demonstrated. The proximal abdominal aorta measured 1.9 cm on image 83. The midportion of the abdominal aorta measu red 1.5 cm on image 95. The distal portion of the abdominal aorta measured 1.4 cm on image 110. The right common iliac artery measured 0.8 cm, the left common iliac artery measured 0.8 cm on image 128. There are single bilateral renal arteries with no evidence for significant stenosis. The celiac trunk , superior mesenteric artery and inferior mesenteric artery demonstrate to be patent with no evidence for significant stenosis/or occlusion. Chest: The lung parenchyma demonstrate to be clear. No symptom pulmonary nodules and/or masses are id entified. There is no evidence for pneumothorax. The trachea mainstem bronchus demonstrate to be unremarkable. There is no pleural/or pericardial effu sions. The heart is normal in size. There are no significant coronary artery calcifications. There is no sig nificant mediastinal and/or hilar lymphadenopathy. The visualized portions of the pulmonary arteries demonstrate to be patent with no evidence for significant filling defects that will just pulmonary em bolus. The axillary regions demonstrate to be clear. The bone windows demonstrate no significant skel etal lesions. Abdomen and pelvis: The liver, gallbladder, spleen, adrenal glands, pancreas demonstrate to be unrema rkable. The kidneys demonstrate normal uptake of contrast media. There is no evidence for nephrolithiasis/or hydronephrosis. The stomach demonstrated presence of gastric bypass jejunostomy/Faby-en-Y surgery. The small bowel de monstrate to be unremarkable. Surgical clips within the cecum correspond to previous appendectomy. Th ere is mild fecal stasis. The urinary bladder was partially distended with no gross abnormalities. The uterus is absent. There are no adnexal masses. There is no retroperitoneal lymphadenopathy. There is no evidence for ascites. The bone windows demonstrate mild diffuse bony osteopenia. Minimal degenerative changes at L5/S1. IMPRESSION: No evidence for significant thoracic or abdominal aortic aneurysm and/or dissection. The . Status post gastric bypass jejunostomy. Mild fecal stasis. Status post hysterectomy. Electronically signed by: Yovanny Ferraro MD 03/15/2021 3:03 AM BEHAVIORAL TECHNICIAN Due to temporary technical issues with the PACS/Fluency reporting system, reports are being signed by the in house radiologist without review as a courtesy to ensure prompt reporting. The interpreting r adiologist is fully responsible for the content of the report.
== END 2021-03-15 03:28 | disposition home or self-care (01) ==
LOC: ER 23:14
DX: R60.9 Edema, unspecified (principal); I10 Essential (primary) hypertension
CPT/HCPCS: 85025; 80048; 36415; 85610; 85730; 83880; 71275; 74175; 93971; 99284; Q9967